=== PATIENT | male | born 2000 | race Caucasian/White ===

== ENCOUNTER 2018-03-22 21:28 | Emergency (ER) | payer SELFPAY ==
[~2018-03-22] VITALS: Ht 172.7 cm; Wt 63.6 kg
[2018-03-22 22:40] VITALS: Ht 172.7 cm; Wt 63.6 kg
[2018-03-23] MEDS ORDERED: TORADOL10 MG PO (00:13)
[2018-03-23 00:44] VITALS: BP 123/88
== END 2018-03-23 00:44 | disposition home or self-care (01) ==
LOC: D.ER 21:28
DX: S61.300A Unspecified open wound of right index finger with damage to nail, initial encounter (principal); W26.8XXA Contact with other sharp object(s), not elsewhere classified, initial encounter; Y93.89 Activity, other specified; Y92.89 Other specified places as the place of occurrence of the external cause